=== PATIENT | male | born 1950 | race Caucasian/White ===

== ENCOUNTER 2024-08-19 19:37 | Emergency (ER) | payer OTHER, SELFPAY ==
[2024-08-19 19:49] VITALS: BP 163/84; PULSE 84; TEMP 36.3; O2SAT 97; BMI 21.6
--- NOTE | 2024-08-19 20:44 | ED_ITS ---
HPI - Male Genitourinary General Chief complaint: Urogenital-Male Stated complaint: Urine RET Time Seen by Provider: 08/19/24 20:04 Source: patient Mode of arrival: walk-in Limitations: no limitations History of Present Illness HPI Narrative: patient has past history of CVA x2. last CVA about 2 years ago with resultant deficit of the right upper and lower extremity. Able to ambulate with a cane. Has diabetic neuropathy. Describes decreased urine flow(dribbling ) this weekend. Very little output yesterday. Today suprapubic pressure and came to ER. No fever or chills or nausea Related Data Allergies Allergy/AdvReac Type Severity Reaction Status Date / Time Penicillins Allergy Rash Verified 08/19/24 19:56 Review of Systems ROS Status of ROS 10 or more systems reviewed and unremark able except as noted in history and below PFSH PFSH Social History Little interest or pleasure in doing things: not at all Feeling down, depressed, or hopeless: not at all Exam Constitutional Vital Signs, click to edit/add: Last Vital Signs Temp 97.4 F L 08/19/24 19:49 Pulse 84 08/19/24 19:49 Resp 20 08/19/24 19:49 BP 163/84 H 08/19/24 19:49 Pulse Ox 97 08/19/24 19:49 O2 Del Method Room Air 08/19/24 19:49 Common normals: no apparent distress, average body habitus, oriented x3, no limitations, healthy appearing, alert and well nourished [facility] Common normals: normocephalic and head/scalp atraumatic Eye Common normals: EOMs intact bilaterally and conjunctivae normal Respiratory Common normals: normal respiratory effort, no retractions, no use of accessory muscles and clear to auscultation bilaterally Cardio Common normals: regular rate, regular rhythm, S1 normal heart sound and S2 normal heart sound GI Common normals: Normal to inspection, nondistended, normoactive bowel sounds present and soft to palpation Extremity Common normals: normal to inspection Neuro Common normals: oriented x3, CN's II-XII intact bilaterally and moves all extremities Motor exam: strength abnormal (right upper and right lower 3-4/5 compared to left) Psych Appearance: grossly normal Speech: normal speech Course Vital Signs Vital signs: Vital Signs Temperature 97.4 F L 08/19/24 19:49 Pulse Rate 84 08/19/24 19:49 Respiratory Rate 20 08/19/24 19:49 Blood Pressure 163/84 H 08/19/24 19:49 Pulse Oximetry 97 08/19/24 19:49 Oxygen Delivery Method Room Air 08/19/24 19:49 Temperature 97.4 F L 08/19/24 19:49 Pulse Rate 84 08/19/24 19:49 Respiratory Rate 20 08/19/24 19:49 Blood Pressure 163/84 H 08/19/24 19:49 Pulse Oximetry 97 08/19/24 19:49 Oxygen Delivery Method Room Air 08/19/24 19:49 MDM - Male Genitourinary MDM Narrative Medical decision making narrative: patient presents with urinary retention. Carreon placed by nursing and over 1000cc urine collected. Labs ordered and pending. labs reviewed and WNL including normal BUN and creat. Patient discharged with leg bag and is to follow up with Urology Lab Data Labs: Lab Results 08/19/24 Range/Units 20:55 WBC 9.9 (4.0-11.0) 10^3/uL RBC 4.70 (4.70-6.10) 10^6/uL Hgb 14.2 (14.0-18.0) g/dL Hct 40.4 L (42.0-54.0) % MCV 86.0 (80.0-94.0) fL MCH 30.2 (25.9-34.0) pg MCHC 35.1 (29.9-35.2) g/dL RDW 12.9 (11.0-15.0) % Plt Count 203 (150-450) 10^3/uL MPV 9.8 (9.5-13.5) fL Neut % (Auto) 71.0 (43.0-75.0) % Lymph % (Auto) 21.2 (20.5-60.0) % [place] % (Auto) 5.7 (1.7-12.0) % Eos % (Auto) 1.4 (0.9-7.0) % Baso % (Auto) 0.5 (0.2-2.0) % Neut # (Auto) 7.0 H (1.4-6.5) 10^3/uL Lymph # (Auto) 2.1 (1.2-3.8) 10^3/uL [place] # (Auto) 0.6 (0.3-0.8) 10^3/uL Eos # (Auto) 0.1 (0.0-0.7) 10^3/uL Baso # (Auto) 0.1 (0.0-0.1) 10^3/uL Abs Immat Gran (auto) 0.02 (0.00-0.03) 10^3/uL Imm/Tot Granulo (auto) 0.2 (0.0-0.5) % Sodium 137 (136-145) mmol/L Potassium 3.9 (3.5-5.1) mmol/L Chloride 103 (98-107) mmol/L Carbon Dioxide 29.5 (21.0-32.0) mmol/L Anion Gap 8.4 BUN 7.0 (7.0-18.0) mg/dL Creatinine 0.79 (0.70-1.30) mg/dL Est GFR ( Amer) >60 (>=60 mL/min/1.73m^2) Est GFR (Non-Af Amer) >60 (>=60 mL/min/1.73m^2) BUN/Creatinine Ratio 8.9 Glucose 189 H (74-106) mg/dL Calcium 9.1 (8.5-10.1) mg/dL Discharge Plan Discharge Chief Complaint: Urogenital-Male Clinical Impression: Acute urinary retention Patient Disposition: Home, Self-Care Print Language: Georgian Instructions: Urinary Retention in Men (ED) Additional Instructions: follow up with Urology later this week or next week Referrals: Desiree Chung [Primary Care Provider] - 1 week
[2024-08-19 21:03] LABS: Basophils Absolute Auto 0.1 10^3/uL (0.0-0.1); Basophils Percent Auto 0.5 % (0.2-2.0); Eosinophils Absolute Auto 0.1 10^3/uL (0.0-0.7); Eosinophils Percent Auto 1.4 % (0.9-7.0); Hematocrit 40.4 % (42.0-54.0); Hemoglobin 14.2 g/dL (14.0-18.0); Immature Granulocytes Abs Auto 0.02 10^3/uL (0.00-0.03); Immature Granulocytes Pct Auto 0.2 % (0.0-0.5); Lymphocytes Absolute Auto 2.1 10^3/uL (1.2-3.8); Lymphocytes Percent Auto 21.2 % (20.5-60.0); Mean Corpuscular HGB Conc 35.1 g/dL (29.9-35.2); Mean Corpuscular Hemoglobin 30.2 pg (25.9-34.0); Mean Platelet Volume 9.8 fL (9.5-13.5); Monocytes Absolute Auto 0.6 10^3/uL (0.3-0.8); Monocytes Percent Auto 5.7 % (1.7-12.0); Platelet Count 203 10^3/uL (150-450); Red Cell Distribution Width 12.9 % (11.0-15.0); White Blood Count 9.9 10^3/uL (4.0-11.0)
[2024-08-19 21:09] LABS: Anion Gap 8.4; BUN Creatinine Ratio 8.9; Calcium 9.1 mg/dL (8.5-10.1); Carbon Dioxide 29.5 mmol/L (21.0-32.0); Chloride 103 mmol/L (98-107); Estimated GFR (African America >60 (>=60 mL/min/1.73m^2); Estimated GFR (Non-African Ame >60 (>=60 mL/min/1.73m^2); Glucose 189 mg/dL (74-106); Potassium 3.9 mmol/L (3.5-5.1); Sodium 137 mmol/L (136-145)
== END 2024-08-19 22:46 | disposition home or self-care (01) ==
PROVIDERS: Emergency Provider Internal Medicine
DX: R33.9 Retention of urine, unspecified (principal); Z86.73 Personal history of transient ischemic attack (TIA), and cerebral infarction without residual deficits; E11.40 Type 2 diabetes mellitus with diabetic neuropathy, unspecified
CPT/HCPCS: 36415; 51702; 80048; 85025; 99284